=== PATIENT | male | born 1985 | race Caucasian/White ===

== ENCOUNTER 2016-08-26 14:58 | Emergency (ER) | payer MEDICAID, OTHER ==
[~2016-08-26] VITALS: Ht 180.3 cm; Wt 89.0 kg
[~2016-08-26 14:58] MED LIST: Z.0.NO CURRENT MEDS
[2016-08-26 15:31] VITALS: BP 130/84; PULSE 79; RESP 16; TEMP 97.8; O2SAT 98
[2016-08-26 16:01] LABS: BLOOD, URINE NEG (NEG); GLUCOSE,URINE NEG (NEG); KETONE, URINE NEG (NEG); NITRITE,URINE NEG (NEG); PH, URINE 6.5 (5.0-8.5)
[2016-08-26 16:13] LABS: METHOD OF COLLECTION CLEAN CATCH; URINE COLOR STRAW (YELLW/STRAW)
[2016-08-26 16:14] LABS: COMMENT (UR) CULT NOT INDICATED; CULTURE IF INDICATED CULT NOT INDICATED
[2016-08-26] MEDS ORDERED: SODIUM CHLORIDE 0.9% FLUSH 5 ML FLUSH IVF PRN (16:15)
[2016-08-26] MEDS ORDERED: IBUP400T20 PO (16:17)
[2016-08-26] MEDS ORDERED: ZANT150T2 PO (16:17)
[2016-08-26 16:29] VITALS: RESP 16; O2SAT 98
--- NOTE | 2016-08-26 16:30 | PD ---
HPI . Abdominal pain Chief Complaint: Abdominal Pain Time Seen by Provider: 16:09 Travel History International Travel<30 days: No Contact w/Intl Traveler<30days: No Traveled to known affect area: No History of Present Illness HPI Patient presents with chief complaint of lower abdominal pain. His symptoms started about 6 months ago. He reports lower abdominal pain with dark stools. He was seen at an outside hospital and was told that he probably had hemorrhoids. He also reports reflux. He had been taking a lot of ibuprofen for his lower abdominal pain. He was using Zantac for the reflux. He stopped the ibuprofen and the reflux improved. He states that he was doing pretty well out a month ago when he started having urinary frequency. Then, about 2 days ago he developed increased lower abdominal pain and dark stools again. Subsequently presents to us today for evaluation. [id number]: Suprapubic area QUALITY: Cramping DURATION: Off-and-on for 6 months TIMING: Acutely worse 2 days ASSOCIATED SYMPTOMS: Dark stools and urinary frequency PFSH Past Medical History Arthritis: No Asthma: No Atrial Fibrillation: Yes Autoimmune Disease: No Heart Rhythm Problems: Yes (AFIB IN PAST) Cardiac Catheterization: No Cardiovascular Problems: Yes (PAST AFIB) High Cholesterol: No Chest Pain: No Congestive Heart Failure: No COPD: No Cerebrovascular Accident: No Diabetes: No Diminished Hearing: No GERD: No Glaucoma: No Headaches: No Hepatitis: No Hiatal Hernia: No Hypertension: No Kidney Stones: No Myocardial Infarction: No Renal Failure: No Seizures: No Sleep Apnea: No Thyroid Disease: No Ulcer: No Tetanus Vaccination: Unknown Influenza Vaccination: No Past Surgical History Abdominal Surgery: No AICD: No Appendectomy: Yes Cardiac Surgery: No Coronary Artery Bypass Graft: No Ear Surgery: No Endocrine Surgery: No Eye Surgery: No Genitourinary Surgery: No Gynecologic Surgery: No Oral Surgery: No Pacemaker: No Thoracic Surgery: No Other Surgery: Yes ("PRE-CANCER REMOVED FROM R CHEEK") Family History Family Myocardial Infarction: Yes Social History Alcohol Use: No (DENIES) Tobacco Use: Yes (1.5 PPD) Substance Use: Yes (MARIJUANA, OCCASIONALLY) Allergies-Medications (Allergen,Severity, Reaction): Coded Allergies: No Known Allergies (Verified , 08/26/16) Reported Meds & Prescriptions Reported Meds & Active Scripts Active Reported Ibuprofen 400 Mg Tab 400 Mg PO Q6H PRN Zantac (Ranitidine HCl) 150 Mg Tab 150 Mg PO DAILY Review of Systems Except as stated in HPI: all other systems reviewed are Neg General / Constitutional: No: Fever, Chills Gastrointestinal: Positive: Abdominal Pain, Indigestion, Other (dark stools), No: Nausea, Vomiting, Diarrhea Genitourinary: Positive: Urgency, Frequency, Other (his testicles feel hot) Physical Exam Narrative GENERAL: Healthy-appearing young man in no acute distress SKIN: Warm and dry. HEAD: Atraumatic. Normocephalic. EYES: Pupils equal and round. Extraocular movements are intact. ENT: No nasal bleeding or discharge. Mucous membranes pink and moist. NECK: Trachea midline. Neck is supple. CARDIOVASCULAR: Regular rate and rhythm. Heart sounds are normal. RESPIRATORY: No accessory muscle use. Lungs are clear with full air movement throughout. GASTROINTESTINAL: Abdomen soft. Mild suprapubic tenderness. No guarding or rebound. Nondistended. : Normal circumcised male. Scrotal sac and testicles are normal. MUSCULOSKELETAL: No obvious deformities. No edema. NEUROLOGICAL: Awake and alert. No obvious cranial nerve deficits. Motor grossly within normal limits. Normal speech. PSYCHIATRIC: Appropriate mood and affect; insight and judgment normal. Data Data Last Documented VS Vital Signs Date Time Temp Pulse Resp B/P Pulse Ox O2 Delivery O2 Flow Rate FiO2 08/26/16 17:40 80 16 119/62 96 Room Air 08/26/16 15:31 97.8 Orders Urinalysis - C+S If Indicated (08/26/16 15:35) Complete Blood Count With Diff (08/26/16 16:09) Comprehensive Metabolic Panel (08/26/16 16:09) Lipase (08/26/16 16:09) Ct Abd/Pel W Iv Contrast(Rout) (08/26/16 16:09) Iv Access Insert/Monitor (08/26/16 16:09) Ecg Monitoring (08/26/16 16:09) Oximetry (08/26/16 16:09) Sodium Chloride 0.9% Flush (Ns Flush) (08/26/16 16:15) Iohexol 350 Inj (Omnipaque 350 Inj) (08/26/16 18:20) Labs Laboratory Tests Test 08/26/16 08/26/16 15:30 16:30 Urine Collection Type CLEAN CATCH Urine Color STRAW Urine Turbidity CLEAR Urine pH 6.5 Urine Specific Brohard 1.004 Urine Protein NEG mg/dL Urine Glucose (UA) NEG mg/dL Urine Ketones NEG mg/dL Urine Occult Blood NEG Urine Nitrite NEG Urine Bilirubin NEG Urine Leukocyte Esterase NEG Urine Amorphous Sediment FEW Microscopic Urinalysis Comment CULT NOT INDICATED Urine Collection Time 1530 White Blood Count 12.1 TH/MM3 Red Blood Count 5.27 MIL/MM3 Hemoglobin 15.7 GM/DL Hematocrit 45.2 % Mean Corpuscular Volume 85.7 FL Mean Corpuscular Hemoglobin 29.8 PG Mean Corpuscular Hemoglobin 34.8 % Concent Red Cell Distribution Width 12.9 % Platelet Count 361 TH/MM3 Mean Platelet Volume 7.9 FL Neutrophils (%) (Auto) 71.9 % Lymphocytes (%) (Auto) 20.5 % Monocytes (%) (Auto) 5.5 % Eosinophils (%) (Auto) 1.3 % Basophils (%) (Auto) 0.8 % Neutrophils # (Auto) 8.6 TH/MM3 Lymphocytes # (Auto) 2.5 TH/MM3 Monocytes # (Auto) 0.7 TH/MM3 Eosinophils # (Auto) 0.2 TH/MM3 Basophils # (Auto) 0.1 TH/MM3 CBC Comment DIFF FINAL Differential Comment Sodium Level 144 MEQ/L Potassium Level 3.8 MEQ/L Chloride Level 106 MEQ/L Carbon Dioxide Level 28.8 MEQ/L Anion Gap 9 MEQ/L Blood Urea Nitrogen 13 MG/DL Creatinine 1.10 MG/DL Estimat Glomerular Filtration 77 ML/MIN Rate Random Glucose 88 MG/DL Calcium Level 8.9 MG/DL Total Bilirubin 0.4 MG/DL Aspartate Amino Transf 14 U/L (AST/SGOT) Alanine Aminotransferase 27 U/L (ALT/SGPT) Alkaline Phosphatase 78 U/L Total Protein 7.4 GM/DL Albumin 3.9 GM/DL Lipase 125 U/L [facility] Medical Decision Making Medical Screen Exam Complete: Yes Emergency Medical Condition: Yes Differential Diagnosis Differential diagnosis of abdominal pain includes but is not limited to gastritis, pancreatitis, hepatitis, gastroenteritis, gallbladder disease, constipation, urinary retention, UTI, peptic ulcer disease, diverticulitis or appendicitis Narrative Course Patient presents with suprapubic abdominal pain, dark stools and decreased frequency. His stool is Hemoccult negative. U/A is negative. CBC & BMP Diagram 08/26/16 16:30 Liver function studies are normal. Lipase is normal. Last Impressions Abdomen/Pelvis CT 08/26/16 1609 Signed Impressions: Service Date/Time: Friday, August 26, 2016 17:58 - CONCLUSION: 1. Unremarkable bowel gas pattern with no inflammatory change or obstruction. 2. The gallbladder is contracted but otherwise unremarkable. There is no evidence of biliary obstruction. Angel Aguilar MD No etiology for the patient's symptoms has been found. He has a benign abdomen. He has had a protracted course. He is stable for discharge. [facility] Point of Care Internal Pos. & Neg. Controls: Passed Fecal Specimen Occult Blood: Negative Diagnosis Primary Impression: Abdominal pain Qualified Code: R10.30 - Lower abdominal pain Patient Instructions: Abdominal Pain (ED), General Instructions Med/Other Pt SpecificInfo: Prescription(s) given Scripts Dicyclomine (Bentyl)20 Mg Tab20 Mg PO QID #30 TAB Ref 0 Prov:Bess Live MD 08/26/16 Disposition: 01 DISCHARGE HOME Condition: Stable Bess Live MD Aug 26, 2016 16:30
[2016-08-26 16:40] VITALS: BP 140/68; PULSE 74; RESP 16; O2SAT 98
[2016-08-26 16:45] LABS: AUTOMATED NEUTROPHIL # 8.6 TH/MM3 (1.8-7.7); BASOPHIL # 0.1 TH/MM3 (0-0.2); BASOPHIL % 0.8 % (0.0-2.0); EOSINOPHIL # 0.2 TH/MM3 (0-0.4); EOSINOPHIL % 1.3 % (0.0-4.0); HEMATOCRIT 45.2 % (39.0-51.0); HEMO FLAGS DIFF FINAL; LYMPH % 20.5 % (9.0-44.0); LYMPHOCYTE # 2.5 TH/MM3 (1.0-4.8); MEAN CELL VOLUME 85.7 FL (80.0-100.0); MEAN CORPUSCULAR HEMOGLOBIN 29.8 PG (27.0-34.0); MEAN CORPUSCULAR HGB CONC 34.8 % (32.0-36.0); MONO % 5.5 % (0.0-8.0); NEUT % 71.9 % (16.0-70.0); PLATELET COUNT 361 TH/MM3 (150-450); RED BLOOD COUNT 5.27 MIL/MM3 (4.50-5.90); RED CELL DISTRIBUTION WIDTH 12.9 % (11.6-17.2); WHITE BLOOD COUNT 12.1 TH/MM3 (4.0-11.0)
[2016-08-26 16:54] LABS: CHLORIDE 106 MEQ/L (98-107); POTASSIUM 3.8 MEQ/L (3.5-5.1); SODIUM (NA) 144 MEQ/L (136-145)
[2016-08-26 16:58] LABS: ANION GAP 9 MEQ/L (5-15); BICARBONATE 28.8 MEQ/L (21.0-32.0); BLOOD UREA NITROGEN 13 MG/DL (7-18)
[2016-08-26 17:01] LABS: ALT (GPT) 27 U/L (12-78); AST (GOT) 14 U/L (15-37); GLOMERULAR FILTRATION RATE 77 ML/MIN (>89)
[2016-08-26 17:03] LABS: TOTAL BILIRUBIN ADULT 0.4 MG/DL (0.2-1.0)
[2016-08-26 17:04] LABS: ALKALINE PHOSPHATASE 78 U/L (45-117)
[2016-08-26 17:40] VITALS: BP 119/62; PULSE 80; RESP 16; O2SAT 96
[2016-08-26] MEDS ORDERED: IOHEXOL 350 MG/ML 10 ML VIAL (for RAD DIAG) IV ONE (18:20)
--- NOTE | 2016-08-26 18:29 | RADHPO ---
EXAM DATE/TIME: 08/26/2016 17:58 [facility] COMPARISON: No previous studies available for comparison. INDICATIONS : Lower abdominal pain, dark stool. IV CONTRAST: 98 cc Omnipaque 350 (iohexol) IV ORAL CONTRAST: No oral contrast ingested. RADIATION DOSE: 12.12 CTDIvol (mGy) MEDICAL HISTORY : Cardiovascular disease. SURGICAL HISTORY : Appendectomy. ENCOUNTER: Initial ACUITY: 2 days PAIN SCALE: 5/10 LOCATION: Bilateral lower quadrant TECHNIQUE: Volumetric scanning of the abdomen and pelvis was performed. Using automated exposure control and ad justment of the mA and/or kV according to patient size, radiation dose was kept as low as reasonably achievable to obtain optimal diagnostic quality images. FINDINGS: LOWER LUNGS: The visualized lower lungs are clear. LIVER: Homogeneous density without lesion. There is no dilation of the biliary tree. The gallbladder is con tracted but otherwise unremarkable with no calcified gallstones. SPLEEN: Normal size without lesion. PANCREAS: Within normal limits. KIDNEYS: Normal in size and shape. There is no mass, stone or hydronephrosis. ADRENAL GLANDS: Within normal limits. VASCULAR: There is no aortic aneurysm. BOWEL/MESENTERY: The stomach, small bowel, and colon demonstrate no acute abnormality. There is no free intraperitone al air or fluid. ABDOMINAL WALL: Within normal limits. RETROPERITONEUM: There is no lymphadenopathy. BLADDER: No wall thickening or mass. REPRODUCTIVE: Within normal limits. INGUINAL: There is no lymphadenopathy or hernia. MUSCULOSKELETAL: Within normal limits for patient age. CONCLUSION: 1. Unremarkable bowel gas pattern with no inflammatory change or obstruction. 2. The gallbladder is contracted but otherwise unremarkable. There is no evidence of biliary obstruct ion. Angel Aguilar MD on August 26, 2016 at 18:24 Board Certified Radiologist. This report was verified electronically.
[2016-08-26] MEDS ORDERED: BENT20TA PO (18:41)
[2016-08-26 19:03] VITALS: BP 140/68; PULSE 78; RESP 16; O2SAT 98
== END 2016-08-26 19:15 | disposition home or self-care (01) ==
LOC: PHED 14:58
DX: R10.30 Lower abdominal pain, unspecified (principal); R19.5 Other fecal abnormalities; R35.0 Frequency of micturition; K21.9 Gastro-esophageal reflux disease without esophagitis; F17.200 Nicotine dependence, unspecified, uncomplicated; Z86.79 Personal history of other diseases of the circulatory system
CPT/HCPCS: 74177; 80053; 81001; 83690; 85025; 99284; Q9967